=== PATIENT | female | born 1990 | race Caucasian/White ===

== ENCOUNTER 2022-12-18 18:36 | Emergency (ER) | payer OTHER ==
[2022-12-18 18:43] VITALS: BP 146/85; PULSE 83; RESP 18; TEMP 98.3; BMI 28.8
[2022-12-18] MEDS ORDERED: SODIUM CHLORIDE 0.9% 500 ML INFUS.BAG IV ONE (19:37)
[2022-12-18] MEDS ORDERED: METOCLOPRAMIDE HCL INJECTION 10 MG/2 ML VIAL IVPUSH ONE (19:37)
[2022-12-18] MEDS ORDERED: ACETAMINOPHEN 1000 MG/100 ML BAG IVPB ONE (19:37)
[2022-12-18] MEDS ORDERED: METOCLOPRAMIDE HCL INJECTION 10 MG/2 ML VIAL ONE (19:46)
[2022-12-18] MEDS ORDERED: ACETAMINOPHEN INJECTION 100 ML IVPB ONE (19:46)
[2022-12-18 20:25] LABS: BASO % 0.3 % (0-2.0); EOS % 0.7 % (0-4.5); HEMATOCRIT 38.8 % (32.4-45.2); LYMPH % 33.1 % (8-40); MCHC 33.5 g/dl (32.0-36.0); MEAN CELL VOLUME 86.5 fl (80-96); MEAN PLT VOLUME 10.3 fl (7.5-11.1); MONO % 7.2 % (3.8-10.2); NEUT % 58.7 % (42.8-82.8); PLATELET COUNT 189 10^3/uL (134-434); RBC 4.49 M/mm3 (3.60-5.2); RDW 13.6 % (11.6-15.6); WHITE BLOOD COUNT 6.6 K/mm3 (4.0-10.0)
[2022-12-18 20:37] LABS: POTASSIUM 4.4 mmol/L (3.5-5.1)
[2022-12-18 20:39] LABS: ALBUMIN 3.9 g/dl (3.4-5.0)
[2022-12-18 20:40] LABS: BLOOD UREA NITROGEN 11.4 mg/dL (7-18)
[2022-12-18 20:42] LABS: CREATININE 0.9 mg/dL (0.55-1.3)
[2022-12-18 20:44] LABS: BILIRUBIN,TOTAL 0.2 mg/dL (0.2-1); TOT PROT 7.1 g/dl (6.4-8.2)
[2022-12-18] MEDS ORDERED: KETOROLAC TROMETHAMINE 30 MG/1 ML VIAL IVPUSH ONE (20:59)
[2022-12-18] MEDS ORDERED: KETOROLAC TROMETHAMINE 30 MG/1 ML VIAL ONE (21:33)
== END 2022-12-18 22:43 | disposition home or self-care (01) ==
LOC: JER 18:36
PROC: 3E033NZ Introduction of Analgesics, Hypnotics, Sedatives into Peripheral Vein, Percutaneous Approach (ICD-10-PCS; principal; 2022-12-18)
PROC: 3E033GC Introduction of Other Therapeutic Substance into Peripheral Vein, Percutaneous Approach (ICD-10-PCS; 2022-12-18)
PROC: 3E033GC Introduction of Other Therapeutic Substance into Peripheral Vein, Percutaneous Approach (ICD-10-PCS; 2022-12-18)
DX: R51.9 Headache, unspecified (principal); F07.81 Postconcussional syndrome
CPT/HCPCS: 36415; 70450-TC; 80053; 84703; 85025; 99284-25

== ENCOUNTER 2023-05-01 09:15 | Emergency (ER) | payer OTHER ==
[2023-05-01 09:22] VITALS: BP 126/84; PULSE 85; RESP 18; TEMP 98; BMI 28.0
[2023-05-01 10:13] LABS: BASO % 0.4 % (0-2.0); EOS % 0.8 % (0-4.5); HEMATOCRIT 41.1 % (32.4-45.2); HEMOGLOBIN 13.8 GM/dL (10.7-15.3); LYMPH % 27.2 % (8-40); MCH 29.8 pg (25.7-33.7); MCHC 33.6 g/dl (32.0-36.0); MEAN CELL VOLUME 88.6 fl (80-96); MONO % 9.4 % (3.8-10.2); NEUT % 62.2 % (42.8-82.8); PLATELET COUNT 212 10^3/uL (134-434); RBC 4.64 M/mm3 (3.60-5.2); RDW 13.3 % (11.6-15.6); WHITE BLOOD COUNT 5.9 K/mm3 (4.0-10.0)
[2023-05-01 10:32] LABS: POTASSIUM 4.6 mmol/L (3.5-5.1)
[2023-05-01 10:34] LABS: CALCIUM 8.8 mg/dL (8.5-10.1)
[2023-05-01 10:35] LABS: ALBUMIN 4.1 g/dl (3.4-5.0); BLOOD UREA NITROGEN 11.2 mg/dL (7-18)
[2023-05-01 10:38] LABS: CREATININE 0.8 mg/dL (0.55-1.3)
[2023-05-01 10:39] LABS: TOT PROT 7.5 g/dl (6.4-8.2)
[2023-05-01 11:16] LABS: BILIRUBIN,TOTAL 0.4 mg/dL (0.2-1)
== END 2023-05-01 11:10 | disposition home or self-care (01) ==
LOC: JER 09:15
DX: R00.2 Palpitations (principal)
CPT/HCPCS: 36415; 80053; 84443; 84703; 85025; 93005; 93010; 99284-25

== ENCOUNTER 2023-06-01 04:14 | Emergency (ER) | payer OTHER ==
[2023-06-01 04:22] VITALS: BMI 27.4
[2023-06-01] MEDS ORDERED: ACETAMINOPHEN 325 MG TABLET (FP) ONE (06:21)
[2023-06-01 09:13] VITALS: RESP 19; TEMP 98
[2023-06-01 09:33] LABS: EPI CELLS >36 /uL (0-25.1); HYALINE CASTS 6 /uL (0-3.1); PH,URINE 8.5 (5.0-8.0); URINE APPEARANCE CLOUDY; URINE BACTERIA 1527 /uL (0-1359); URINE BILIRUBIN NEGATIVE (NEGATIVE); URINE COLOR YELLOW; URINE GLUCOSE (UA) NEGATIVE (NEGATIVE); URINE KETONE NEGATIVE (NEGATIVE); URINE LEUK ESTERASE 3+ (NEGATIVE); URINE NITRITE NEGATIVE (NEGATIVE); URINE PROTEIN 1+ (NEGATIVE); URINE RBC 51 /uL (0-23.9); URINE WBC 65 /uL (0-25.8)
[2023-06-01 09:44] LABS: BASO % 0.3 % (0-2.0); EOS % 0.2 % (0-4.5); HEMATOCRIT 38.5 % (32.4-45.2); HEMOGLOBIN 12.6 GM/dL (10.7-15.3); LYMPH % 15.1 % (8-40); MCH 29.2 pg (25.7-33.7); MCHC 32.7 g/dl (32.0-36.0); MEAN CELL VOLUME 89.3 fl (80-96); MEAN PLT VOLUME 10.2 fl (7.5-11.1); MONO % 5.1 % (3.8-10.2); NEUT % 79.3 % (42.8-82.8); PLATELET COUNT 203 10^3/uL (134-434); RBC 4.31 M/mm3 (3.60-5.2); RDW 13.4 % (11.6-15.6); WHITE BLOOD COUNT 10.8 K/mm3 (4.0-10.0)
[2023-06-01 09:56] LABS: POTASSIUM 4.9 mmol/L (3.5-5.1)
[2023-06-01 09:58] LABS: ALBUMIN 3.9 g/dl (3.4-5.0); CALCIUM 9.3 mg/dL (8.5-10.1)
[2023-06-01 10:02] LABS: CREATININE 0.6 mg/dL (0.55-1.3)
[2023-06-01 10:03] LABS: BILIRUBIN,TOTAL 0.4 mg/dL (0.2-1); TOT PROT 6.9 g/dl (6.4-8.2)
[2023-06-01 10:51] VITALS: BP 118/80; PULSE 82
== END 2023-06-01 10:59 | disposition home or self-care (01) ==
LOC: JER 04:14
DX: R10.30 Lower abdominal pain, unspecified (principal); R11.0 Nausea; N93.9 Abnormal uterine and vaginal bleeding, unspecified
CPT/HCPCS: 36415; 76830-TC; 80053; 81003; 84702; 85025; 86850; 86900; 86901; 87077; 87086; 99284-25

== ENCOUNTER 2023-07-03 22:14 | Emergency (ER) | payer OTHER ==
[2023-07-03 22:20] VITALS: BP 127/82; PULSE 81; RESP 19; TEMP 98.2; BMI 27.6
== END 2023-07-03 23:54 | disposition home or self-care (01) ==
LOC: JER 22:14
DX: R07.9 Chest pain, unspecified (principal); M94.0 Chondrocostal junction syndrome [Tietze]
CPT/HCPCS: 93005; 93010; 99283-25